=== PATIENT | male | born 1970 | race African-American/Black ===

== ENCOUNTER → 2022-09-05 | Outpatient (CLI) | payer BC | LOC: CPPFTMAIN 09:53 | PROVIDERS: ATTEND Thoracic Surgery (Cardiothoracic Vascular Surgery) | DX: I34.0 Nonrheumatic mitral (valve) insufficiency (principal) | CPT/HCPCS: 94150 ==

== ENCOUNTER → 2022-10-03 | Outpatient (CLI) | payer BC ==
--- NOTE | 2022-10-03 09:10 | XR ---
EXAMINATION TYPE: XR chest 2V DATE OF EXAM: 10/03/2022 COMPARISON: NONE HISTORY: Shortness of breath TECHNIQUE: Frontal and lateral views of the chest are obtained. FINDINGS: Scattered senescent parenchymal changes noted. No evidence for infiltrate. No evidence for atelectasis. Heart size is stable. Mediastinal structures are stable and grossly unremarkable. No evidence for hilar prominence. Degenerative changes dorsal spine. IMPRESSION: 1. No evidence for acute pulmonary disease.
[2022-10-03 11:06] LABS: INR 1.1 (<1.2); Partial Thromboplastin Time 24.6 sec (22.0-30.0); Prothrombin Time 11.5 sec (9.0-12.0)
--- NOTE | 2022-10-03 14:45 | P.PN ---
Progress Note - Text Progress Note Date: 10/03/22 A 5 m walk test was completed with the patient , time 1: 1.82 seconds, time 2: 2.05 seconds, time 3: 2.13 seconds.
[2022-10-03 15:21] LABS: ALT 39 U/L (10-49); AST 45 U/L (14-35); African American GFR (CKD) 66.3 (60.0-200.0); Albumin 4.2 g/dL (3.8-4.9); Alkaline Phosphatase 105 U/L (41-126); BUN/Creat Ratio 13.66 Ratio (12.00-20.00); Blood Urea Nitrogen 19.4 mg/dL (9.0-27.0); Calcium 9.6 mg/dL (8.7-10.3); Carbon Dioxide 26.5 mmol/L (20.0-27.5); Chloride 101 mmol/L (96-109); Chol/HDL Ratio 2.77 Ratio; Globulin 3.2 g/dL (1.6-3.3); Glucose 79 mg/dL (70-110); LDL Cholesterol,Calculated 82.3 mg/dL (0.0-131.0); Magnesium 2.2 mg/dL (1.5-2.4); Non-African American GFR(CKD) 57.2 (60.0-200.0); Potassium 4.4 mmol/L (3.5-5.5); Sodium 136 mmol/L (135-145); Total Protein 7.4 g/dL (6.2-8.2)
[2022-10-03 15:28] LABS: Hepatitis A Antibody IgM Nonreactive (Nonreactive); Hepatitis B Core IgM Nonreactive (Nonreactive); Hepatitis B Surface Antigen Nonreactive (Nonreactive); Hepatitis C IgG Antibody Nonreactive (Nonreactive)
[2022-10-03 16:32] LABS: Appearance,Urine Clear (Clear); Bilirubin,Urine Negative (Negative); Blood,Urine Negative (Negative); Color,Urine Yellow (Yellow); Ketones,Urine Negative (Negative); Nitrite,Urine Negative (Negative); Specific Gravity,Urine 1.025 (1.001-1.030)
[2022-10-03 16:43] LABS: Bacteria,Urine None Seen /HPF (None Seen)
[2022-10-03 17:09] LABS: HCT 53.4 % (39.6-50.0); HGB 17.3 g/dL (13.0-17.0); MCH 30.1 pg (27.0-32.0); MCHC 32.4 g/dL (32.0-37.0); Mean Platelet Volume 10.8 fL (9.5-12.2); NRBC Per 100 WBC 0 /100 WBCS (0.0-0.0); Platelet Count 255 X 10*3/uL (140-440); RBC 5.74 X 10*6/uL (4.40-5.60); RDW 14.2 % (11.5-14.5); WBC 5.09 X 10*3/uL (4.50-10.00)
--- NOTE | 2022-10-04 09:14 | US ---
EXAMINATION TYPE: US vein mapping BIL DATE OF EXAM: 10/03/2022 11:39 AM COMPARISON: NONE CLINICAL HISTORY: OPEN HEART. SIDE PERFORMED: Bilateral TECHNIQUE: Lower extremity saphenous vein is examined and measured utilizing real time linear array sonography. Patient History: Smoker: No Heart Disease: Yes Previous DVT: No Vascular Surgery: No Discoloration: No Hypertension: Yes Diabetes: Yes Paralysis: No Varicosities: No Edema: No DUPLEX FINDINGS: Greater Saphenous: Color flow seen Measurements in mm: Right Greater Saphenous: AP X WIDTH Groin: 3.7 X 4.8 mm High Thigh: 2.6 X 2.6 mm Mid Thigh: 3.2 X 3.4 mm Above Knee: 2.5 X 3.6 mm Knee: 2.6 X 3.6 mm Below Knee: 2.3 X 2.7 mm Mid Calf: 2.5 X 3.7 mm At Ankle: 2.3 X 2.7 mm Left Greater Saphenous: Groin: 7.4 X 7.3 mm High Thigh: 2.6 X 3.1 mm Mid Thigh: 3.1 X 2.8 mm Above Knee: 2.7 X 3.2 mm Knee: 2.5 X 3.1 mm Below Knee: 2.6 X 2.8 mm Mid Calf: 2.3 X 3.0 mm At Ankle: 2.1 X 2.8 mm IMPRESSION: 1. Bilateral GSV measurements listed above. 2. Performing surgeon to determine viability as conduit.
== END | disposition home or self-care (01) ==
LOC: LABWHC1 08:42
PROVIDERS: ATTEND Thoracic Surgery (Cardiothoracic Vascular Surgery)
DX: Z20.822 Contact with and (suspected) exposure to COVID-19 (principal); I35.1 Nonrheumatic aortic (valve) insufficiency
CPT/HCPCS: 80061; 80053; 80074; 84443; 83735; 85027; 85610; 85730; 81001; 87070; 87086; 83036; 71046; 93970; 93005; 36415; U0003

== ENCOUNTER 2022-10-07 08:00 | Inpatient (IN) | payer BC ==
[2022-10-08] MEDS ORDERED: HEPARIN SODIUM,PORCINE 5,000 UNIT in SODIUM CHLORIDE 0.9% 500 ML 500 ML IV ONE (06:00)
[2022-10-08] MEDS ORDERED: propofoL 1,000 MG/100 ML VIAL IV ONE (06:00)
[2022-10-08] MEDS ORDERED: CALCIUM CHLORIDE 100 MG/ML 10 ML SYRINGE IV ONE (06:00)
[2022-10-08] MEDS ORDERED: METOPROLOL TARTRATE 12.5 MG TAB PO ONE (06:00)
[2022-10-08] MEDS ORDERED: PAPAVERINE 360 MG in SODIUM CHLORIDE 0.9% 90 ML IV ONE (06:00)
[2022-10-08] MEDS ORDERED: INSULIN REGULAR 100 UNIT in SODIUM CHLORIDE 0.9% 100 ML IV ONE (06:00)
[2022-10-08] MEDS ORDERED: NITROGLYCERIN SL TABS 0.4 MG TAB SUBLINGUAL ONE (06:00)
[2022-10-08] MEDS ORDERED: MUPIROCIN 2% OINT 22 GM TUBE NASAL ONE (06:00)
[2022-10-08] MEDS ORDERED: PHENYLEPHRINE 40 MG in SODIUM CHLORIDE 0.9% 250 ML IV ONE (06:00)
[2022-10-08] MEDS ORDERED: NITROGLYCERIN-D5W PMX 25 MG/250 ML BTL IV ONE (06:00)
[2022-10-08] MEDS ORDERED: SODIUM CHLORIDE 0.9% 1,000 ML IV ONE (06:00)
[2022-10-08] MEDS ORDERED: SODIUM BICARB 8.4% 50 ML SYR (1 MEQ/ML) IV ONE (06:00)
[2022-10-08] MEDS ORDERED: ALBUMIN HUMAN 25% 50 ML IV ONE (06:00)
[2022-10-08] MEDS ORDERED: HEPARIN SODIUM 1,000 UN/ML (10ML VL) IV ONE (06:00)
[2022-10-08] MEDS ORDERED: ATORVASTATIN 10 MG TAB PO ONE (06:00)
[2022-10-08] MEDS ORDERED: NOREPINEPHRINE 4 MG in SODIUM CHLORIDE 0.9% 250 ML IV ONE (06:00)
[2022-10-08] MEDS ORDERED: CHLORHEXIDINE GLUCONATE 15 ML CUP MUCOUS MEM ONE (06:00)
[2022-10-08] MEDS ORDERED: PROTAMINE SULFATE 250 MG in EMPTY BAG 1 BAG IV ONE (06:00)
[2022-10-08] MEDS ORDERED: ELECTROLYTE-A SOLUTION 1,000 ML with POTASSIUM CHLORIDE 100 MEQ, MAGNESIUM SULFATE 16 M... IV ONE ×5 (06:00)
[2022-10-08] MEDS ORDERED: ELECTROLYTE-A SOLUTION 1,000 ML with POTASSIUM CHLORIDE 40 MEQ, MAGNESIUM SULFATE 16 ME... IV ONE ×5 (06:00)
[2022-10-08] MEDS ORDERED: MAGNESIUM SULFATE 16.24 MEQ in EMPTY SYRINGE 1 SYR IV ONE (06:00)
[2022-10-08] MEDS ORDERED: MANNITOL 25% 12.5 GM/50 ML VIAL IV ONE (06:00)
[2022-10-08] MEDS ORDERED: NITROGLYCERIN-D5W PMX 50 MG in DEXTROSE/WATER 1 250ML.BAG IV ONE (06:00)
[2022-10-08] MEDS ORDERED: PROTAMINE SULFATE 10 MG/ML 25 ML VIAL IV ONE (06:00)
[2022-10-08] MEDS ORDERED: ceFAZolin 1,000 MG in SODIUM CHLORIDE 0.9% IRRIGATIO 1,000 ML IRRIGATION ONE (06:00)
[2022-10-08] MEDS ORDERED: PHENYLEPHRINE 10 MG/ML VIAL IV ONE (06:00)
[2022-10-08] MEDS ORDERED: TRANEXAMIC ACID 2,000 MG in SODIUM CHLORIDE 0.9% 80 ML IV ONE ×4 (06:00)
[2022-10-08] MEDS ORDERED: CLEVIDIPINE BUTYRATE 25 MG in EMPTY BAG 1 BAG IV ONE (06:00)
[2022-10-08] MEDS ORDERED: ASPIRIN 325 MG TAB PO ONE (06:00)
[2022-10-08] MEDS ORDERED: LACTATED RINGERS 1,000 ML IV ONE (06:00)
[2022-10-08 06:50] LABS: Glucose,Whole Blood 89 mg/dL (70-110)
[2022-10-08 08:52] LABS: ABG Base Excess 0.5 mmol/L; ABG Glucose Whole Blood 82 mg/dL (75-99); ABG HCO3 27 mmol/L (21-25); ABG Hematocrit 48 % (34.0-46.0); ABG Ionized Calcium 4.9 mg/dL (4.5-5.3); ABG Lactic Acid Whole Blood 1.1 mmol/L (0.5-1.6); ABG Oxygen Saturation 99.8 % (94-97); ABG PCO2 47 mmHg (35-45); ABG PH 7.36 (7.35-7.45); ABG PO2 397 mmHg (83-108); ABG Potassium Whole Blood 4.3 mmol/L (3.4-4.5); ABG Sodium Whole Blood 140 mmol/L (135-146); ABG TCO2 28 mmol/L (19-24)
[2022-10-08 09:52] LABS: ABG Base Excess 0.6 mmol/L; ABG Glucose Whole Blood 90 mg/dL (75-99); ABG HCO3 26 mmol/L (21-25); ABG Hematocrit 47 % (34.0-46.0); ABG Ionized Calcium 4.8 mg/dL (4.5-5.3); ABG Oxygen Saturation 99.8 % (94-97); ABG PCO2 43 mmHg (35-45); ABG PH 7.39 (7.35-7.45); ABG Potassium Whole Blood 4.1 mmol/L (3.4-4.5); ABG Sodium Whole Blood 140 mmol/L (135-146); ABG TCO2 27 mmol/L (19-24)
[2022-10-08 10:22] LABS: ABG Base Excess 0.2 mmol/L; ABG Glucose Whole Blood 89 mg/dL (75-99); ABG HCO3 26 mmol/L (21-25); ABG Hematocrit 38 % (34.0-46.0); ABG Ionized Calcium 4.4 mg/dL (4.5-5.3); ABG Oxygen Saturation 99.7 % (94-97); ABG PCO2 44 mmHg (35-45); ABG PH 7.38 (7.35-7.45); ABG PO2 366 mmHg (83-108); ABG Sodium Whole Blood 136 mmol/L (135-146); ABG TCO2 27 mmol/L (19-24)
--- NOTE | 2022-10-08 10:54 | P.ANPRN ---
Procedure Note - Anesthesia - Invasive Line Right Central Line Time Out Performed: Yes ([id number]) Date of Procedure: 10/08/22 Time of Procedure: 07:28 Location of Patient: Phase I Preparation: Sterile Prep, Sterile Dressing Arterial Line Location: Radial Central Line Location: Internal Jugular Ultrasound Used: Yes Purpose - Visualization and Identification of Vasculature: Yes Needle Guage: 18g angio Image Stored and Saved: Yes Narrative: Central line placement per sterile protocol utilized. +local +angio +jwire +uneventful introduction and dilation right IJ cordis. Lumen bled. Non-pulsitile. Flushed.
--- NOTE | 2022-10-08 10:56 | P.ANPRN ---
Procedure Note - Anesthesia - Invasive Line Right [place] Time Out Performed: Yes ([id number]) Date of Procedure: 10/08/22 Time of Procedure: 07:37 Location of Patient: Phase I Preparation: Sterile Prep, Sterile Dressing Arterial Line Location: Radial [place] Line Location: Internal Jugular Ultrasound Used: No Purpose - Visualization and Identification of Vasculature: No Image Stored and Saved: No Narrative: Central line placement per sterile protocol utilized. swan floated in sheath in 2 attempts. All lumens flushed prior to introduction. Wedge at 59cm. B/d. W/d 5cm and secured at 54cm.
[2022-10-08 11:07] LABS: ABG Base Excess 0.4 mmol/L; ABG Glucose Whole Blood 98 mg/dL (75-99); ABG HCO3 26 mmol/L (21-25); ABG Hematocrit 39 % (34.0-46.0); ABG Ionized Calcium 4.5 mg/dL (4.5-5.3); ABG Lactic Acid Whole Blood 1.2 mmol/L (0.5-1.6); ABG Oxygen Saturation 99.7 % (94-97); ABG PCO2 44 mmHg (35-45); ABG PH 7.38 (7.35-7.45); ABG PO2 346 mmHg (83-108); ABG Potassium Whole Blood 5.1 mmol/L (3.4-4.5); ABG Sodium Whole Blood 137 mmol/L (135-146); ABG TCO2 27 mmol/L (19-24)
[2022-10-08] MEDS ORDERED: AMIODARONE 360 MG in DEXTROSE 5% IN WATER 200 ML IV PRN ×2 (12:35)
[2022-10-08] MEDS ORDERED: METOCLOPRAMIDE 5 MG/ML 2 ML VIAL IVP PRN (12:35)
[2022-10-08] MEDS ORDERED: Potassium Replacement Protocol 1 EACH MISC MISCELLANE PRN (12:35)
[2022-10-08] MEDS ORDERED: ALBUMIN HUMAN 5% 250 ML in EMPTY BAG 1 BAG IVPB PRN (12:35)
[2022-10-08] MEDS ORDERED: BENZOCAINE/MENTHOL LOZENG 1 EACH LOZENGE MUCOUS MEM PRN (12:35)
[2022-10-08] MEDS ORDERED: Magnesium Replacement Protocol 1 EACH MISC MISCELLANE PRN (12:35)
[2022-10-08] MEDS ORDERED: DEXTROSE 50% SYRINGE 50 ML IVP PRN ×2 (12:35)
[2022-10-08] MEDS ORDERED: AMIODARONE 450 MG in DEXTROSE 5% IN WATER 250 ML IV PRN ×2 (12:35)
[2022-10-08] MEDS ORDERED: IPRATROPIUM-ALBUTEROL 3 ML NEB INHALATION PRN (12:35)
[2022-10-08] MEDS ORDERED: DEXTROSE 5% IN WATER 100 ML with AMIODARONE 150 MG IV PRN (12:35)
[2022-10-08] MEDS ORDERED: CALCIUM GLUCONATE IN NACL 2 GM in SALINE 1 100ML.BAG IVPB PRN (12:35)
[2022-10-08] MEDS ORDERED: hydrALAZINE HCL 20 MG/ML 1 ML VIAL IVP PRN (12:35)
[2022-10-08 12:48] LABS: ABG PO2 >420 mmHg (83-108)
[2022-10-08] MEDS: LACTATED RINGERS 1,000 ML IV SCH (13:02)
[2022-10-08 13:31] LABS: Glucose,Whole Blood 94 mg/dL (70-110)
[2022-10-08 13:44] LABS: Basophils % (A) 0 %; Eosinophils # (A) 0.2 k/uL (0-0.7); Eosinophils % (A) 1 %; HCT 45.3 % (39.0-53.0); HGB 15.2 gm/dL (13.0-17.5); Lymphocytes # (A) 1.5 k/uL (1.0-4.8); Lymphocytes % (A) 11 %; MCH 30.7 pg (25.0-35.0); MCHC 33.6 g/dL (31.0-37.0); MCV 91.5 fL (80.0-100.0); Mean Platelet Volume 8.5; Monocytes # (A) 0.5 k/uL (0-1.0); Monocytes % (A) 3 %; Neutrophils # (A) 11.8 k/uL (1.3-7.7); Neutrophils % (A) 84 %; Platelet Count 156 k/uL (150-450); RBC 4.95 m/uL (4.30-5.90); RDW 14.2 % (11.5-15.5); WBC 14.1 k/uL (3.8-10.6)
[2022-10-08] MEDS ORDERED: CLEVIDIPINE BUTYRATE 25 MG in EMPTY BAG 1 BAG IV SCH (13:45)
[2022-10-08] MEDS ORDERED: DEXMEDETOMIDINE/0.9% NACL(PMX) 400 MCG in EMPTY BAG 1 BAG IV SCH (13:45)
[2022-10-08 13:48] LABS: Ionized Calcium 5.3 mg/dL (4.5-5.3)
--- NOTE | 2022-10-08 13:55 | XR ---
EXAMINATION TYPE: XR chest 1V portable DATE OF EXAM: 10/08/2022 1:46 PM COMPARISON: Chest radiographs from 10/03/2022 TECHNIQUE: XR chest 1V portable Portable AP radiograph of the chest. CLINICAL INDICATION:Male, 52 years old with history of Post Operative Cardiac Surgery; FINDINGS: Lungs/Pleura: There is no evidence of pleural effusion, focal consolidation, or pneumothorax. Pulmonary vascularity: Unremarkable. Heart/mediastinum: Cardiomediastinal silhouette is prominent in size. Post valve repair changes. Lef t atrial appendage occlusion device is present. Musculoskeletal: No acute osseous pathology. Midline sternotomy wires are noted. Other findings: None Lines/Tubes: Endotracheal tube with distal tip 1.5 cm above the charla Nasogastric tube with its distal tip and side-port projecting under the diaphragm. There is a [place]-Juan catheter with tip projecting over the spine. Drainage tubes with tips projecting over the mediastinum. IMPRESSION: 1. Endotracheal tube in low position. Consider retraction of 2-3 cm for optimal placement. 2. Remainder of lines and tubes appear in appropriate position.
[2022-10-08 13:59] LABS: INR 1.2 (<1.2); Partial Thromboplastin Time 39.8 sec (22.0-30.0); Prothrombin Time 12.5 sec (9.0-12.0)
[2022-10-08] MEDS ORDERED: INSULIN REGULAR 100 UNIT in SODIUM CHLORIDE 0.9% 100 ML IV SCH (14:00)
[2022-10-08 14:01] LABS: Albumin 3.2 g/dL (3.5-5.0); Calcium 8.3 mg/dL (8.4-10.2); Magnesium 2.6 mg/dL (1.6-2.3); Potassium 4.4 mmol/L (3.5-5.1); Total Bilirubin 1.2 mg/dL (0.2-1.3); Total Protein 5.6 g/dL (6.3-8.2)
[2022-10-08] MEDS: MILRINONE-D5W PMX 20 MG in DEXTROSE/WATER 1 100ML.BAG IV SCH ×2 (14:07→20:04)
[2022-10-08] MEDS: NOREPINEPHRINE 4 MG in SODIUM CHLORIDE 0.9% 250 ML IV SCH (14:09)
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
[2022-10-08 14:32] LABS: Glucose,Whole Blood 85 mg/dL (70-110)
[2022-10-08] MEDS ORDERED: IPRATROPIUM-ALBUTEROL 3 ML NEB INHALATION SCH (16:00)
[2022-10-08 16:09] LABS: Glucose,Whole Blood 96 mg/dL (70-110)
[2022-10-08 16:29] LABS: Basophils % (A) 0 %; Eosinophils # (A) 0.1 k/uL (0-0.7); Eosinophils % (A) 1 %; HCT 47.8 % (39.0-53.0); HGB 16.2 gm/dL (13.0-17.5); Lymphocytes # (A) 1.2 k/uL (1.0-4.8); Lymphocytes % (A) 8 %; MCH 31.3 pg (25.0-35.0); MCHC 33.8 g/dL (31.0-37.0); MCV 92.7 fL (80.0-100.0); Mean Platelet Volume 8.3; Monocytes # (A) 0.6 k/uL (0-1.0); Monocytes % (A) 4 %; Neutrophils # (A) 13.1 k/uL (1.3-7.7); Neutrophils % (A) 86 %; Platelet Count 170 k/uL (150-450); RBC 5.16 m/uL (4.30-5.90); RDW 14.2 % (11.5-15.5); WBC 15.3 k/uL (3.8-10.6)
[2022-10-08] MEDS: HEPARIN SODIUM,PORCINE/PF 5,000 UNIT/0.5 ML SYRINGE SQ SCH ×2 (16:29→23:13)
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
[2022-10-08] MEDS: ACETAMINOPHEN IV (For NPO) 1,000 MG in EMPTY BAG 1 BAG IVPB SCH ×2 (16:55→23:09)
[2022-10-08 17:04] LABS: Glucose,Whole Blood 95 mg/dL (70-110)
[2022-10-08] MEDS ORDERED: KETOROLAC 15 MG/ML 1 ML VIAL IVP STA (17:35)
[2022-10-08] MEDS: HYDROmorphone 1 MG/ML 1 ML SYRINGE IVP PRN ×2 (17:54→23:07)
[2022-10-08 18:42] LABS: Glucose,Whole Blood 97 mg/dL (70-110)
[2022-10-08] MEDS: ONDANSETRON 4 MG/2 ML VIAL IVP PRN (19:06)
[2022-10-08] MEDS: IPRATROPIUM-ALBUTEROL 3 ML NEB INHALATION SCH (19:45)
[2022-10-08 19:49] LABS: Glucose,Whole Blood 107 mg/dL (70-110)
[2022-10-08 19:55] LABS: Basophils % (A) 0 %; Eosinophils % (A) 0 %; HCT 45.9 % (39.0-53.0); HGB 15.3 gm/dL (13.0-17.5); Lymphocytes # (A) 0.7 k/uL (1.0-4.8); Lymphocytes % (A) 5 %; MCH 30.9 pg (25.0-35.0); MCHC 33.4 g/dL (31.0-37.0); MCV 92.7 fL (80.0-100.0); Mean Platelet Volume 8.2; Monocytes # (A) 0.5 k/uL (0-1.0); Monocytes % (A) 4 %; Neutrophils # (A) 12.9 k/uL (1.3-7.7); Neutrophils % (A) 89 %; Platelet Count 155 k/uL (150-450); RBC 4.95 m/uL (4.30-5.90); RDW 14.4 % (11.5-15.5); WBC 14.4 k/uL (3.8-10.6)
[2022-10-08] MEDS: AMIODARONE 200 MG TAB PO SCH (20:08)
--- NOTE | 2022-10-08 20:57 | OP ---
OPERATIVE REPORT ASSISTANTS: 1. Taco Montano NP. 2. HUNTER Tidwell. PREOPERATIVE DIAGNOSES: 1. Severe aortic insufficiency. 2. [id number] mitral regurgitation. POSTOPERATIVE DIAGNOSES: 1. Severe aortic insufficiency. 2. [id number] mitral regurgitation. PROCEDURES: Aortic valve replacement with a #25 mm Abreu Inspiris bioprosthetic aortic valve, mitral valve repair with a #30 mm CarboMedics AnnuloFlex band, clip ligation of the left atrial appendage with a 35 mm AtriClip, and intraoperative DAQUAN. ANESTHESIA: General. BLOOD LOSS: 500 mL. SUMMARY: The patient was brought to the operating room and placed in supine position. Upon administration of general endotracheal anesthetic, placement of a [place]-Juan catheter, arterial line, adequate IV access Hyde catheter, the patient was carefully prepped and draped in normal sterile fashion using chlorhexidine paint and sterile towels. A midline incision in the chest was made, sternum divided, pericardium was opened, heart size was enlarged. The aorta was soft. The patient was heparinized to an ACT of greater than 480. The aorta and 2 single-stage venous cannulas were placed. Antegrade and retrograde cardioplegic catheters were positioned in the ascending aorta and the coronary sinus. The patient was placed on bypass, cross-clamp placed, heart arrested with 1 L of antegrade followed by 500 mL retrograde cardioplegia. Retrograde cardioplegia was delivered, 300 to 500 mL at the end of each 20-minute interval. First, the base of the left atrial appendage was measured at 35 mm AtriClip, secured at the base sufficiently obliterating the left atrial appendage. The left atrium was entered at the junction of the right superior pulmonary vein. A handheld retractor was placed. The subvalvular apparatus was within normal limits. There was definitely a dilated annulus and mild coaptation. 2-0 Ti-Cron non-pledgeted sutures were placed from trigone to trigone along the posterior annulus and it sized to a 30 mm CarboMedics AnnuloFlex band. At this point, the band was brought into the field. 2-0 Ti-Cron non- pledgeted sutures were placed from trigone to trigone and then placed to the band. The band was seated well. All sutures were secured, tied, and cut using the Cor-Knot ligature system device. At this point, the atrium was closed in a double layered pledgeted 4-0 Prolene vertical mattress followed by an [id number] stitch on both sides. Next, a transverse aortotomy incision was made 2 cm distal to the takeoff of the right coronary artery. The aortic valve was identified, and it was a trileaflet valve. There was a hole in the right coronary cusp leaflet. The 3 leaflets were excised. The annulus was debrided and irrigated out. It sized to a 25 mm Abreu Inspiris bioprosthetic aortic valve. 2-0 Ti-Cron pledgetted sutures were placed ventricularly based circumferentially. These were then passed through the sewing cuff of the valve, which seated and seated well. All sutures were then secured, tied, and cut using the Cor-Knot ligature system device. It was irrigated out again, and the aortotomy incision was closed in a double layered pledgeted 4-0 Prolene vertical mattress followed by an [id number]-waxg stitch from both sides. The patient was placed head down. Complete de-airing maneuvers performed 3 times. 1 L of warm blood retrograde cardioplegia was run. Cross-clamp was then removed. The patient was reperfused, and once beating in normal sinus rhythm, the patient was ventilated and brought off bypass. He came off bypass uneventfully with good hemodynamics with a little bit of Primacor and Levophed, protamine delivered, the patient decannulated. Atrioventricular pacing wires were placed. Mediastinal chest tubes x2 were placed. At this point, the sternum was closed with four #6 sternal wires and two [id number] [place] sternal cable closure devices. Skin, subcutaneous tissue, fascia closed in 3 layers. No complications. The patient tolerated the procedure well. Postoperative DAQUAN showed excellent aortic valve function. No paravalvular leak. The mitral valve had good coaptation with no residual MR, and the patient was then transported to the cardiovascular intensive care unit in critical, but stable condition. MMODL / IJN: [id number] /
[2022-10-08 21:01] LABS: Glucose,Whole Blood 104 mg/dL (70-110)
[2022-10-08 22:10] LABS: Glucose,Whole Blood 107 mg/dL (70-110)
[2022-10-09] MEDS ORDERED: KETOROLAC 15 MG/ML 1 ML VIAL IVP SCH
[2022-10-09 00:08] LABS: Glucose,Whole Blood 111 mg/dL (70-110)
[2022-10-09] MEDS ORDERED: HYDROcodone/APAP 5-325MG 1 EACH TAB PO PRN (00:13)
[2022-10-09 02:01] LABS: Glucose,Whole Blood 110 mg/dL (70-110)
[2022-10-09] MEDS: HYDROmorphone 1 MG/ML 1 ML SYRINGE IVP PRN (02:55)
[2022-10-09] MEDS: ONDANSETRON 4 MG/2 ML VIAL IVP PRN (03:53)
[2022-10-09 04:08] LABS: Glucose,Whole Blood 110 mg/dL (70-110)
[2022-10-09] MEDS: HYDROcodone/APAP 5-325MG 1 EACH TAB PO PRN ×5 (04:58→22:43)
[2022-10-09 05:04] LABS: Glucose,Whole Blood 114 mg/dL (70-110)
[2022-10-09 05:13] LABS: Basophils # (A) 0.1 k/uL (0-0.2); Basophils % (A) 1 %; Eosinophils # (A) 0.2 k/uL (0-0.7); Eosinophils % (A) 1 %; HCT 47.3 % (39.0-53.0); HGB 15.7 gm/dL (13.0-17.5); Lymphocytes # (A) 1.1 k/uL (1.0-4.8); Lymphocytes % (A) 7 %; MCH 30.8 pg (25.0-35.0); MCHC 33.3 g/dL (31.0-37.0); MCV 92.6 fL (80.0-100.0); Monocytes # (A) 0.6 k/uL (0-1.0); Monocytes % (A) 4 %; Neutrophils # (A) 12.3 k/uL (1.3-7.7); Neutrophils % (A) 86 %; Platelet Count 157 k/uL (150-450); RBC 5.11 m/uL (4.30-5.90); RDW 13.9 % (11.5-15.5); WBC 14.3 k/uL (3.8-10.6)
[2022-10-09 05:19] LABS: Ionized Calcium 5.1 mg/dL (4.5-5.3)
[2022-10-09 05:33] LABS: Albumin 3.6 g/dL (3.5-5.0); Calcium 8.5 mg/dL (8.4-10.2); Magnesium 2.1 mg/dL (1.6-2.3); Potassium 5.1 mmol/L (3.5-5.1); Total Protein 6.3 g/dL (6.3-8.2)
[2022-10-09] MEDS: LACTATED RINGERS 1,000 ML IV SCH (06:15)
--- NOTE | 2022-10-09 06:22 | XR ---
EXAMINATION TYPE: XR chest 1V portable DATE OF EXAM: 10/09/2022 CLINICAL HISTORY: Difficulty breathing progress study. Postoperative cardiac surgery. TECHNIQUE: Single AP portable upright view of the chest is obtained. COMPARISON: Chest x-ray from one day earlier and older studies. FINDINGS: Interval extubation with removal of endotracheal and orogastric tubes. Stable right equine internship al jugular [place]-Juan catheter. Stable 2 mediastinal drainage catheters. Overlying sternal wires along with left atrial appendage clip are redemonstrated. Persistent low lung volumes. Persistent cardiomegaly. [place] left basilar opacity. Right lung rem ains clear. Osseous structures are intact. IMPRESSION: Interval extubation. Persistent low lung volumes and cardiomegaly with developing left ba silar acute infiltrate and/or atelectasis noted.
[2022-10-09 06:57] LABS: Glucose,Whole Blood 118 mg/dL (70-110)
[2022-10-09] MEDS: carvediloL 3.125 MG TAB PO SCH ×2 (07:05→16:51)
[2022-10-09 08:12] LABS: Glucose,Whole Blood 119 mg/dL (70-110)
[2022-10-09] MEDS: IPRATROPIUM-ALBUTEROL 3 ML NEB INHALATION SCH ×4 (08:47→19:58)
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
[2022-10-09] MEDS ORDERED: PANTOPRAZOLE 40 MG/10 ML VIAL IVP SCH (09:00)
[2022-10-09] MEDS ORDERED: METOPROLOL TARTRATE 12.5 MG TAB PO SCH (09:00)
[2022-10-09] MEDS: ATORVASTATIN 20 MG TAB PO SCH (09:00)
[2022-10-09] MEDS: AMIODARONE 200 MG TAB PO SCH ×2 (09:00→19:59)
[2022-10-09] MEDS: MULTIVITAMINS, THERA 1 EACH TAB PO SCH (09:00)
[2022-10-09] MEDS ORDERED: MAGNESIUM HYDROXIDE 2,400 MG/10 ML CUP PO PRN (09:00)
[2022-10-09] MEDS ORDERED: bisacodyL 10 MG SUPP RECTAL PRN (09:00)
[2022-10-09] MEDS: HEPARIN SODIUM,PORCINE/PF 5,000 UNIT/0.5 ML SYRINGE SQ SCH ×2 (09:01→16:51)
[2022-10-09] MEDS: CLOPIDOGREL 75 MG TAB PO SCH (09:01)
[2022-10-09] MEDS: ASPIRIN 325 MG TAB PO SCH (09:01)
--- NOTE | 2022-10-09 09:08 | P.PN ---
Subjective Progress Note Date: 10/09/22 PROGRESS NOTE The patient is a 52-year-old male, followed by Dr. Johnson underwent aortic valve replacement and mitral valve repair was closure of the left atrial appendage. He has been having progressive aortic regurgitation with evidence of cardiomyopathy. He underwent cardiac catheterization in July and showed normal coronary arteries, his DAQUAN showed an ejection fraction of 35-40% with global hypokinesis severe aortic was moderate mitral regurgitation and mild tricuspid regurgitation. The patient is intubated and sedated. He is in sinus mechanism but apparently had arrhythmia in the operating room. He has been complaining according to the records of progressive dyspnea and fatigue. He has a prior history of sustained on a more frequent ventricle tachycardia. He has a history of diabetes, hypertension and hyperlipidemia. October 09: The patient is extubated, sitting up in the chair. He he has incisional chest pain. His presenting stable. He continues to be in sinus mechanism. His urinary output is good. He has no ventricular ectopic activity. He is using incentive spirometry Medications: Amiodarone 400 mg twice a day, Coreg 3.125 mg twice a day, aspirin once a day, Lipitor 20 mg daily, Plavix 75 mg daily PHYSICAL EXAMINATION: Blood pressure 131/90 heart rate 70 LUNGS: Mild decrease in the breath sounds at the bases HEART: Regular rate and rhythm, S1, S2. No S3. systolic ejection murmur ABDOMEN: Soft, nontender, no organomegaly EXTREMETIES: No edema LAB: Hemoglobin 15.7, BUN 20, creatinine 1.12, potassium 5.1 IMPRESSION: 1. Status post aortic valve replacement and mitral valve repair 2. History of nonischemic cardiomyopathy 3. Prior history of nonsustained VT 4. Hyperlipidemia PLAN: 1. Continue present therapy 2. Follow blood pressure and if stable reinitiate Entresto and adjust the dose of his beta olga. 3. Follow renal functions 4. Increase physical activity Objective - Vital Signs Vital signs: Vital Signs Temp 99.5 F 10/09/22 08:00 Pulse 85 10/09/22 08:51 Resp 25 H 10/09/22 08:00 BP 125/105 10/09/22 07:30 Pulse Ox 96 10/09/22 08:00 FiO2 50 10/08/22 15:20 Intake & Output 10/08/22 10/09/22 10/09/22 18:59 06:59 18:59 Intake Total 472.430 933.546 118 Output Total 3275 1520 130 Balance -2802.570 -586.454 -12 Weight 102.5 kg Intake: IV 446 828 118 .9NS Cardiac Output 100 120 .9NS Pressure Bags 45 108 18 Lactated Ringers 1,000 ml 250 600 100 @ 50 mls/hr IV .Q20H [facility] Rx#:[id number] Intake, IV Titration 26.430 105.546 Amount Clevidipine Butyrate 25 16.533 mg In Empty Bag 1 bag @ 1 MG/HR 2 mls/hr IV .Q24H [facility] Rx#:[id number] Milrinone-D5w Pmx 20 mg 105.546 In Dextrose/Water 1 100ml .bag @ 0.3 MCG/KG/MIN 9. 09 mls/hr IV .Q11H1M [facility] Rx#:[id number] propofoL 1,000 mg In 9.897 Empty Bag 1 bag @ Titrate IV .Q0M [facility] Rx#: [id number] Output: Chest Tube Drainage 300 440 30 Mediastinal X @ 300 440 30 Urine 1475 1080 100 Estimated Blood Loss 1500 Other: Voiding Method Indwelling Catheter Indwelling Catheter ABP, PAP, CO, CI - Last Documented Arterial Blood Pressure 131/92 Pulmonary Artery Pressure 44/20 Cardiac Output 4.9 Cardiac Index 2.2 - Labs CBC & Chem 7: 10/09/22 05:04 10/09/22 05:04 Labs: Abnormal Lab Results - Last 24 Hours (Table) 10/03/22 10/08/22 10/08/22 Range/Units 09:06 08:52 09:52 WBC (3.8-10.6) k/uL Neutrophils # (1.3-7.7) k/uL Lymphocytes # (1.0-4.8) k/uL PT (9.0-12.0) sec INR (<1.2) APTT (22.0-30.0) sec ABG pCO2 47 H (35-45) mmHg ABG pO2 397 H >420 H (83-108) mmHg ABG HCO3 27 H 26 H (21-25) mmol/L ABG Total CO2 28 H 27 H (19-24) mmol/L ABG O2 Saturation 99.8 H 99.8 H (94-97) % ABG Hematocrit 48 H 47 H (34.0-46.0) % ABG Potassium (3.4-4.5) mmol/L ABG Ionized Calcium (4.5-5.3) mg/dL Hemoglobin (13.0-17.5) gm/dL Sodium (137-145) mmol/L Chloride (98-107) mmol/L BUN (9-20) mg/dL Glucose (74-99) mg/dL POC Glucose (mg/dL) (70-110) mg/dL Calcium (8.4-10.2) mg/dL Magnesium (1.6-2.3) mg/dL Total Bilirubin (0.2-1.3) mg/dL AST (17-59) U/L Total Protein (6.3-8.2) g/dL Albumin (3.5-5.0) g/dL Arterial Blood Potassium (3.4-4.5) mmol/L Crossmatch See Detail 10/08/22 10/08/22 10/08/22 Range/Units 10:22 11:07 13:30 WBC (3.8-10.6) k/uL Neutrophils # (1.3-7.7) k/uL Lymphocytes # (1.0-4.8) k/uL PT 12.5 H (9.0-12.0) sec INR 1.2 H (<1.2) APTT 39.8 H (22.0-30.0) sec ABG pCO2 (35-45) mmHg ABG pO2 366 H 346 H (83-108) mmHg ABG HCO3 26 H 26 H (21-25) mmol/L ABG Total CO2 27 H 27 H (19-24) mmol/L ABG O2 Saturation 99.7 H 99.7 H (94-97) % ABG Hematocrit (34.0-46.0) % ABG Potassium 5.0 H 5.1 H (3.4-4.5) mmol/L ABG Ionized Calcium 4.4 L (4.5-5.3) mg/dL Hemoglobin 12.4 L 12.6 L (13.0-17.5) gm/dL Sodium (137-145) mmol/L Chloride (98-107) mmol/L BUN (9-20) mg/dL Glucose (74-99) mg/dL POC Glucose (mg/dL) (70-110) mg/dL Calcium (8.4-10.2) mg/dL Magnesium (1.6-2.3) mg/dL Total Bilirubin (0.2-1.3) mg/dL AST (17-59) U/L Total Protein (6.3-8.2) g/dL Albumin (3.5-5.0) g/dL Arterial Blood Potassium 5.0 H 5.1 H (3.4-4.5) mmol/L Crossmatch 10/08/22 10/08/22 10/08/22 Range/Units 13:30 13:30 16:23 WBC 14.1 H 15.3 H (3.8-10.6) k/uL Neutrophils # 11.8 H 13.1 H (1.3-7.7) k/uL Lymphocytes # (1.0-4.8) k/uL PT (9.0-12.0) sec INR (<1.2) APTT (22.0-30.0) sec ABG pCO2 (35-45) mmHg ABG pO2 (83-108) mmHg ABG HCO3 (21-25) mmol/L ABG Total CO2 (19-24) mmol/L ABG O2 Saturation (94-97) % ABG Hematocrit (34.0-46.0) % ABG Potassium (3.4-4.5) mmol/L ABG Ionized Calcium (4.5-5.3) mg/dL Hemoglobin (13.0-17.5) gm/dL Sodium (137-145) mmol/L Chloride 110 H (98-107) mmol/L BUN 21 H (9-20) mg/dL Glucose (74-99) mg/dL POC Glucose (mg/dL) (70-110) mg/dL Calcium 8.3 L (8.4-10.2) mg/dL Magnesium 2.6 H (1.6-2.3) mg/dL Total Bilirubin (0.2-1.3) mg/dL AST 82 H (17-59) U/L Total Protein 5.6 L (6.3-8.2) g/dL Albumin 3.2 L (3.5-5.0) g/dL Arterial Blood Potassium (3.4-4.5) mmol/L Crossmatch 10/08/22 10/09/22 10/09/22 Range/Units 19:40 00:07 05:03 WBC 14.4 H (3.8-10.6) k/uL Neutrophils # 12.9 H (1.3-7.7) k/uL Lymphocytes # 0.7 L (1.0-4.8) k/uL PT (9.0-12.0) sec INR (<1.2) APTT (22.0-30.0) sec ABG pCO2 (35-45) mmHg ABG pO2 (83-108) mmHg ABG HCO3 (21-25) mmol/L ABG Total CO2 (19-24) mmol/L ABG O2 Saturation (94-97) % ABG Hematocrit (34.0-46.0) % ABG Potassium (3.4-4.5) mmol/L ABG Ionized Calcium (4.5-5.3) mg/dL Hemoglobin (13.0-17.5) gm/dL Sodium (137-145) mmol/L Chloride (98-107) mmol/L BUN (9-20) mg/dL Glucose (74-99) mg/dL POC Glucose (mg/dL) 111 H 114 H (70-110) mg/dL Calcium (8.4-10.2) mg/dL Magnesium (1.6-2.3) mg/dL Total Bilirubin (0.2-1.3) mg/dL AST (17-59) U/L Total Protein (6.3-8.2) g/dL Albumin (3.5-5.0) g/dL Arterial Blood Potassium (3.4-4.5) mmol/L Crossmatch 10/09/22 10/09/22 10/09/22 Range/Units 05:04 05:04 06:55 WBC 14.3 H (3.8-10.6) k/uL Neutrophils # 12.3 H (1.3-7.7) k/uL Lymphocytes # (1.0-4.8) k/uL PT (9.0-12.0) sec INR (<1.2) APTT (22.0-30.0) sec ABG pCO2 (35-45) mmHg ABG pO2 (83-108) mmHg ABG HCO3 (21-25) mmol/L ABG Total CO2 (19-24) mmol/L ABG O2 Saturation (94-97) % ABG Hematocrit (34.0-46.0) % ABG Potassium (3.4-4.5) mmol/L ABG Ionized Calcium (4.5-5.3) mg/dL Hemoglobin (13.0-17.5) gm/dL Sodium 136 L (137-145) mmol/L Chloride (98-107) mmol/L BUN (9-20) mg/dL Glucose 120 H (74-99) mg/dL POC Glucose (mg/dL) 118 H (70-110) mg/dL Calcium (8.4-10.2) mg/dL Magnesium (1.6-2.3) mg/dL Total Bilirubin 2.0 H (0.2-1.3) mg/dL AST 120 H (17-59) U/L Total Protein (6.3-8.2) g/dL Albumin (3.5-5.0) g/dL Arterial Blood Potassium (3.4-4.5) mmol/L Crossmatch 10/09/22 Range/Units 08:11 WBC (3.8-10.6) k/uL Neutrophils # (1.3-7.7) k/uL Lymphocytes # (1.0-4.8) k/uL PT (9.0-12.0) sec INR (<1.2) APTT (22.0-30.0) sec ABG pCO2 (35-45) mmHg ABG pO2 (83-108) mmHg ABG HCO3 (21-25) mmol/L ABG Total CO2 (19-24) mmol/L ABG O2 Saturation (94-97) % ABG Hematocrit (34.0-46.0) % ABG Potassium (3.4-4.5) mmol/L ABG Ionized Calcium (4.5-5.3) mg/dL Hemoglobin (13.0-17.5) gm/dL Sodium (137-145) mmol/L Chloride (98-107) mmol/L BUN (9-20) mg/dL Glucose (74-99) mg/dL POC Glucose (mg/dL) 119 H (70-110) mg/dL Calcium (8.4-10.2) mg/dL Magnesium (1.6-2.3) mg/dL Total Bilirubin (0.2-1.3) mg/dL AST (17-59) U/L Total Protein (6.3-8.2) g/dL Albumin (3.5-5.0) g/dL Arterial Blood Potassium (3.4-4.5) mmol/L Crossmatch
[2022-10-09 09:10] LABS: Glucose,Whole Blood 130 mg/dL (70-110)
[2022-10-09 10:07] VITALS: BMI 31.9
[2022-10-09 10:07] LABS: Glucose,Whole Blood 128 mg/dL (70-110)
[2022-10-09 11:19] LABS: Glucose,Whole Blood 134 mg/dL (70-110)
[2022-10-09] MEDS: NOREPINEPHRINE 4 MG in SODIUM CHLORIDE 0.9% 250 ML IV SCH (14:02)
[2022-10-09] MEDS: INSULIN ASPART (NovoLOG) 100 UNIT/ML VIAL SQ SCH ×3 (14:03→20:00)
[2022-10-09] MEDS: MILRINONE-D5W PMX 20 MG in DEXTROSE/WATER 1 100ML.BAG IV SCH (14:03)
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
[2022-10-09 16:53] LABS: Glucose,Whole Blood 124 mg/dL (70-110)
[2022-10-09 19:56] LABS: Glucose,Whole Blood 137 mg/dL (70-110)
[2022-10-09] MEDS: SENNOSIDES-DOCUSATE SODIUM 1 EACH TAB PO SCH (19:59)
--- NOTE | 2022-10-09 22:16 | CONS ---
CONSULTATION REASON FOR CONSULTATION: Advice regarding diabetes mellitus and other medical issues, requested by surgery. HISTORY OF PRESENT ILLNESS: This is a 52-year-old gentleman with past medical history of diabetes mellitus, hypertension, history of CHF, nonischemic cardiomyopathy, underwent aortic valve replacement and mitral valve repair. The patient was closely monitored, patient extubated. Chest tubes in place including [place]-Juan. The blood sugar is only mildly elevated at 130. Patient apparently had prediabetes. There is no history of any fever, rigors, or chills at this time. PAST MEDICAL HISTORY: History of CHF, GERD, diabetes mellitus. The rest of the history and rest of the chart is reviewed. HOME MEDICATIONS: Reviewed include multivitamins, doses and rest of medication reviewed. The patient is on Entresto. ALLERGIES: Ibuprofen. FAMILY HISTORY: History of CVA, TIA. SOCIAL HISTORY: No history of smoking. History of THC. REVIEW OF SYSTEMS: A 14-point review is negative except as mentioned earlier. PHYSICAL EXAMINATION: VITAL SIGNS: Pulse is 77, blood pressure 130/94, respirations 13. HEENT: Conjunctivae normal. NECK: No jugular venous distention. CARDIOVASCULAR: S1, S2. RESPIRATIONS: Breath sounds diminished at the bases. Diffuse scattered rhonchi. ABDOMEN: Soft, nontender. LEGS: No edema. NERVOUS SYSTEM: No focal deficits. LABS: Accu-Cheks 134, 128, rest of the labs noted. ASSESSMENT: 1. Status post aortic valve replacement and mitral valve repair. 2. Diabetes mellitus, type 2. 3. History of nonischemic cardiomyopathy and congestive heart failure. 4. History of seizure disorder. 5. History of sleep apnea. 6. History of ventricular tachycardia. RECOMMENDATIONS: This 52-year-old gentleman presented with multiple complex medical issues, we will monitor the patient closely. Will recommend to resume the home medications and institute Accu-Cheks a.c. and h.s. and insulin scale. Diabetic, consistent carb diet and appropriate, otherwise symptomatic treatment, DVT prophylaxis. We will follow the patient closely. The patient may be asked to follow with primary physician closely after discharge. Thank you Dr. Mcdowell. JERRY / CONSUELON: [id number] /
[2022-10-10] MEDS: HEPARIN SODIUM,PORCINE/PF 5,000 UNIT/0.5 ML SYRINGE SQ SCH ×3 (01:19→16:55)
[2022-10-10] MEDS: HYDROcodone/APAP 5-325MG 1 EACH TAB PO PRN ×3 (01:41→10:47)
[2022-10-10] MEDS: carvediloL 3.125 MG TAB PO SCH ×3 (05:41→16:55)
[2022-10-10 05:44] LABS: Basophils % (A) 0 %; Eosinophils # (A) 0.1 k/uL (0-0.7); Eosinophils % (A) 0 %; HCT 42.1 % (39.0-53.0); HGB 14.1 gm/dL (13.0-17.5); Lymphocytes # (A) 1.5 k/uL (1.0-4.8); Lymphocytes % (A) 9 %; MCH 30.8 pg (25.0-35.0); MCHC 33.4 g/dL (31.0-37.0); Mean Platelet Volume 8.6; Monocytes # (A) 0.9 k/uL (0-1.0); Monocytes % (A) 5 %; Neutrophils # (A) 13.6 k/uL (1.3-7.7); Neutrophils % (A) 83 %; Platelet Count 110 k/uL (150-450); RBC 4.58 m/uL (4.30-5.90); RDW 14.2 % (11.5-15.5); WBC 16.4 k/uL (3.8-10.6)
[2022-10-10 05:49] LABS: Ionized Calcium 5.1 mg/dL (4.5-5.3)
[2022-10-10 05:57] LABS: Albumin 3.4 g/dL (3.5-5.0); Calcium 8.3 mg/dL (8.4-10.2); Total Bilirubin 2.3 mg/dL (0.2-1.3); Total Protein 6.2 g/dL (6.3-8.2)
[2022-10-10 07:06] LABS: Glucose,Whole Blood 110 mg/dL (70-110)
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
[2022-10-10] MEDS: INSULIN ASPART (NovoLOG) 100 UNIT/ML VIAL SQ SCH ×4 (07:48→20:20)
[2022-10-10 07:57] LABS: Glucose,Whole Blood 120 mg/dL (70-110)
--- NOTE | 2022-10-10 08:18 | XR ---
EXAMINATION TYPE: XR chest 1V portable DATE OF EXAM: 10/10/2022 6:44 AM COMPARISON: Chest radiographs from 10/09/2022 TECHNIQUE: XR chest 1V portable Portable AP radiograph of the chest. CLINICAL INDICATION:Male, 52 years old with history of Post Operative Cardiac Surgery; FINDINGS: Lungs/Pleura: Bibasilar atelectasis with low lung volumes. No evidence for pneumothorax, pleural effu corinne or focal consolidation. Pulmonary vascularity: Unremarkable. Heart/mediastinum: Cardiomediastinal silhouette is enlarged and stable. Left atrial appendage occlusi on device is present. Musculoskeletal: No acute osseous pathology. Midline sternotomy wires are noted. Other findings: None IMPRESSION: Mild bibasilar atelectasis.
[2022-10-10] MEDS: DAPAGLIFLOZIN PROPANEDIOL 5 MG TABLET PO SCH (08:29)
[2022-10-10] MEDS: AMIODARONE 200 MG TAB PO SCH ×2 (08:29→20:19)
[2022-10-10] MEDS: CLOPIDOGREL 75 MG TAB PO SCH (08:30)
[2022-10-10] MEDS: MULTIVITAMINS, THERA 1 EACH TAB PO SCH (08:30)
[2022-10-10] MEDS: ASPIRIN 325 MG TAB PO SCH (08:30)
[2022-10-10] MEDS: ATORVASTATIN 20 MG TAB PO SCH (08:30)
[2022-10-10] MEDS: LACTATED RINGERS 1,000 ML IV SCH (08:35)
--- NOTE | 2022-10-10 08:35 | P.PN ---
Subjective Progress Note Date: 10/10/22 PROGRESS NOTE The patient is a 52-year-old male, followed by Dr. Johnson underwent aortic valve replacement and mitral valve repair was closure of the left atrial appendage. He has been having progressive aortic regurgitation with evidence of cardiomyopathy. He underwent cardiac catheterization in July and showed normal coronary arteries, his DAQUAN showed an ejection fraction of 35-40% with global hypokinesis severe aortic was moderate mitral regurgitation and mild tricuspid regurgitation. The patient is intubated and sedated. He is in sinus mechanism but apparently had arrhythmia in the operating room. He has been complaining according to the records of progressive dyspnea and fatigue. He has a prior history of sustained on a more frequent ventricle tachycardia. He has a history of diabetes, hypertension and hyperlipidemia. October 09: The patient is extubated, sitting up in the chair. He he has incisional chest pain. His presenting stable. He continues to be in sinus mechanism. His urinary output is good. He has no ventricular ectopic activity. He is using incentive spirometry October 10: He's feeling well this morning, sitting up in the chair, continues to be in junctional rhythm with no evidence of bradycardia arrhythmia. He denies any chest discomfort. He has no dizziness or palpitation, no nausea or vomiting. Medications: Amiodarone 400 mg twice a day, Coreg 3.125 mg twice a day, aspirin once a day, Lipitor 20 mg daily, Plavix 75 mg daily, Farxiga 5 mg qd PHYSICAL EXAMINATION: Blood pressure 111/80 heart rate 70 LUNGS: Mild decrease in the breath sounds at the bases HEART: Regular rate and rhythm, S1, S2. No S3. systolic ejection murmur ABDOMEN: Soft, nontender, no organomegaly EXTREMETIES: No edema LAB: Hemoglobin 14.1, BUN 20, creatinine 1.2, potassium 5.0 IMPRESSION: 1. Status post aortic valve replacement and mitral valve repair 2. History of nonischemic cardiomyopathy 3. Prior history of nonsustained VT 4. Hyperlipidemia 5. Junctional rhythm PLAN: 1. Continue present therapy 2. Follow blood pressure and if stable reinitiate Entresto and adjust the dose of his beta olga. 3. Follow renal functions 4. Increase physical activity 5. Follow rhythm and if he continues to be in junctional rhythm after increasing the physical activity he may require pacemaker Objective - Vital Signs Vital signs: Vital Signs Temp 99 F 10/10/22 04:00 Pulse 77 10/10/22 07:00 Resp 14 10/10/22 07:00 BP 135/99 10/10/22 07:00 Pulse Ox 94 L 10/10/22 07:00 FiO2 50 10/08/22 15:20 Intake & Output 10/09/22 10/10/22 10/10/22 18:59 06:59 18:59 Intake Total 570.069 555 26 Output Total 800 690 45 Balance -229.931 -135 -19 Weight 102.5 kg 103.9 kg Intake: IV 548 315 26 .9NS Cardiac Output 20 .9NS Pressure Bags 108 75 6 Lactated Ringers 1,000 ml 420 240 20 @ 20 mls/hr IV .Q24H [facility] Rx#:[id number] Intake, IV Titration 22.069 Amount Insulin Regular 100 unit 1.869 In Sodium Chloride 0.9% 100 ml @ Per Protocol IV .Q0M [facility] Rx#:[id number] Milrinone-D5w Pmx 20 mg 20.2 In Dextrose/Water 1 100ml .bag @ 0.3 MCG/KG/MIN 9. 09 mls/hr IV .Q11H1M [facility] Rx#:[id number] Oral 240 Output: Chest Tube Drainage 190 110 10 Mediastinal X @ 190 110 10 Urine 610 580 35 Other: Voiding Method Indwelling Catheter Indwelling Catheter ABP, PAP, CO, CI - Last Documented Arterial Blood Pressure 111/83 Pulmonary Artery Pressure 44/19 Cardiac Output 4.9 Cardiac Index 2.2 - Labs CBC & Chem 7: 10/10/22 05:00 10/10/22 05:00 Labs: Abnormal Lab Results - Last 24 Hours (Table) 10/09/22 10/09/22 10/09/22 Range/Units 09:08 10:05 11:17 WBC (3.8-10.6) k/uL Plt Count (150-450) k/uL Neutrophils # (1.3-7.7) k/uL Sodium (137-145) mmol/L BUN (9-20) mg/dL Glucose (74-99) mg/dL POC Glucose (mg/dL) 130 H 128 H 134 H (70-110) mg/dL Calcium (8.4-10.2) mg/dL Total Bilirubin (0.2-1.3) mg/dL AST (17-59) U/L Total Protein (6.3-8.2) g/dL Albumin (3.5-5.0) g/dL 10/09/22 10/09/22 10/10/22 Range/Units 16:52 19:55 05:00 WBC 16.4 H (3.8-10.6) k/uL Plt Count 110 L (150-450) k/uL Neutrophils # 13.6 H (1.3-7.7) k/uL Sodium (137-145) mmol/L BUN (9-20) mg/dL Glucose (74-99) mg/dL POC Glucose (mg/dL) 124 H 137 H (70-110) mg/dL Calcium (8.4-10.2) mg/dL Total Bilirubin (0.2-1.3) mg/dL AST (17-59) U/L Total Protein (6.3-8.2) g/dL Albumin (3.5-5.0) g/dL 10/10/22 10/10/22 Range/Units 05:00 07:56 WBC (3.8-10.6) k/uL Plt Count (150-450) k/uL Neutrophils # (1.3-7.7) k/uL Sodium 130 L (137-145) mmol/L BUN 21 H (9-20) mg/dL Glucose 113 H (74-99) mg/dL POC Glucose (mg/dL) 120 H (70-110) mg/dL Calcium 8.3 L (8.4-10.2) mg/dL Total Bilirubin 2.3 H (0.2-1.3) mg/dL AST 80 H (17-59) U/L Total Protein 6.2 L (6.3-8.2) g/dL Albumin 3.4 L (3.5-5.0) g/dL
[2022-10-10 09:05] LABS: Glucose,Whole Blood 127 mg/dL (70-110)
[2022-10-10] MEDS: IPRATROPIUM-ALBUTEROL 3 ML NEB INHALATION SCH ×4 (09:16→21:34)
[2022-10-10] MEDS ORDERED: FUROSEMIDE 10 MG/ML 4 ML VIAL IV STA (10:19)
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
[2022-10-10 12:35] LABS: Glucose,Whole Blood 143 mg/dL (70-110)
[2022-10-10 13:12] LABS: Glucose,Whole Blood 122 mg/dL (70-110)
[2022-10-10 16:53] LABS: Glucose,Whole Blood 106 mg/dL (70-110)
[2022-10-10 20:14] LABS: Glucose,Whole Blood 116 mg/dL (70-110)
[2022-10-10] MEDS: SENNOSIDES-DOCUSATE SODIUM 1 EACH TAB PO SCH (20:20)
[2022-10-10 21:01] LABS: Glucose,Whole Blood 110 mg/dL (70-110)
[2022-10-10] MEDS: ACETAMINOPHEN TAB 500 MG TAB PO PRN (21:29)
[2022-10-11] MEDS: HEPARIN SODIUM,PORCINE/PF 5,000 UNIT/0.5 ML SYRINGE SQ SCH ×3 (00:53→15:27)
[2022-10-11] MEDS: ACETAMINOPHEN TAB 500 MG TAB PO PRN ×3 (04:41→21:38)
[2022-10-11] MEDS: carvediloL 3.125 MG TAB PO SCH ×2 (06:33→17:34)
[2022-10-11 06:35] LABS: Glucose,Whole Blood 104 mg/dL (70-110)
[2022-10-11] MEDS: INSULIN ASPART (NovoLOG) 100 UNIT/ML VIAL SQ SCH ×4 (06:35→21:32)
--- NOTE | 2022-10-11 06:47 | PN ---
PROGRESS NOTE DATE OF SERVICE: 10/10/2022 SUBJECTIVE: This is a 52-year-old gentleman who was admitted after aortic valve replacement, the mitral repair is being closely monitored. The patient also has history of diabetes mellitus type 2 as well. The blood sugars have been fairly well controlled at this time. The bilirubin is elevated to 0.3. PAST MEDICAL HISTORY: Reviewed. REVIEW OF SYSTEM: A 14-point review of systems is negative except as mentioned earlier. CURRENT MEDICATIONS: Reviewed, which include amiodarone, dose and rest of medication noted. PHYSICAL EXAM: VITAL SIGNS: Pulse is 72, blood pressure 127/83, respirations 11. HEENT: Conjunctivae normal. NECK: No jugular venous distention. No neck pain. CARDIOVASCULAR: S1, S2. RESPIRATIONS: Breath sounds diminished at the bases. Diffuse scattered rhonchi. ABDOMEN: Soft. LEGS: No edema. NERVOUS SYSTEM: No focal deficits. LABORATORY DATA: Reviewed. ASSESSMENT: 1. Status post aortic valve replacement and mitral repair. 2. Diabetes mellitus type 2. 3. History of nonischemic cardiomyopathy and CHF prior to admission. 4. History of seizure disorder. 5. History of sleep apnea. 6. History of ventricular tachycardia. RECOMMENDATIONS: Continue current management and symptomatic treatment. Continue incentive spirometry, bronchodilators. Continue rest of medications, amiodarone. I would also recommend to monitor the liver functions serially to ensure stability. Otherwise, continue to monitor. Further recommendations to follow. [id number] / BENNY: [id number] /
[2022-10-11 07:26] LABS: Calcium 8.4 mg/dL (8.4-10.2); Magnesium 2.1 mg/dL (1.6-2.3); Potassium 4.4 mmol/L (3.5-5.1)
[2022-10-11 07:29] LABS: Basophils % (A) 0 %; Eosinophils # (A) 0.2 k/uL (0-0.7); Eosinophils % (A) 2 %; HCT 35.4 % (39.0-53.0); HGB 11.9 gm/dL (13.0-17.5); Lymphocytes # (A) 1.4 k/uL (1.0-4.8); Lymphocytes % (A) 11 %; MCH 31.6 pg (25.0-35.0); MCHC 33.7 g/dL (31.0-37.0); MCV 93.7 fL (80.0-100.0); Monocytes # (A) 0.8 k/uL (0-1.0); Monocytes % (A) 7 %; Neutrophils # (A) 9.9 k/uL (1.3-7.7); Neutrophils % (A) 78 %; Platelet Count 109 k/uL (150-450); RBC 3.78 m/uL (4.30-5.90); RDW 13.9 % (11.5-15.5); WBC 12.7 k/uL (3.8-10.6)
--- NOTE | 2022-10-11 07:34 | XR ---
EXAMINATION TYPE: XR chest 2V DATE OF EXAM: 10/11/2022 COMPARISON: 10/10/2022 INDICATION: Postop cardiac surgery TECHNIQUE: Frontal and lateral views of the chest are obtained. FINDINGS: The heart size is mildly prominent. The pulmonary vasculature is normal. Bibasilar platelike atelectasis is developing. Minimal pleural effusion should be considered. Sterno jose miguel wires are present from surgery. IMPRESSION: 1. Bibasilar platelike atelectasis. Minimal pleural effusions being considered. 2. Cardiomegaly
[2022-10-11] MEDS: IPRATROPIUM-ALBUTEROL 3 ML NEB INHALATION SCH ×4 (08:32→21:30)
--- NOTE | 2022-10-11 08:55 | P.PN ---
Subjective Progress Note Date: 10/11/22 PROGRESS NOTE The patient is a 52-year-old male, followed by Dr. Johnson underwent aortic valve replacement and mitral valve repair was closure of the left atrial appendage. He has been having progressive aortic regurgitation with evidence of cardiomyopathy. He underwent cardiac catheterization in July and showed normal coronary arteries, his DAQUAN showed an ejection fraction of 35-40% with global hypokinesis severe aortic was moderate mitral regurgitation and mild tricuspid regurgitation. The patient is intubated and sedated. He is in sinus mechanism but apparently had arrhythmia in the operating room. He has been complaining according to the records of progressive dyspnea and fatigue. He has a prior history of sustained on a more frequent ventricle tachycardia. He has a history of diabetes, hypertension and hyperlipidemia. October 09: The patient is extubated, sitting up in the chair. He he has incisional chest pain. His presenting stable. He continues to be in sinus mechanism. His urinary output is good. He has no ventricular ectopic activity. He is using incentive spirometry October 10: He's feeling well this morning, sitting up in the chair, continues to be in junctional rhythm with no evidence of bradycardia arrhythmia. He denies any chest discomfort. He has no dizziness or palpitation, no nausea or vomiting. October 11: He's feeling better today, back in sinus mechanism. He has no pauses or ventricular ectopic activity. He has been ambulating without difficulty. He denies any dizziness or palpitations. He denies any nausea. Hemodynamically stable. Medications: Amiodarone 400 mg twice a day, Coreg 3.125 mg twice a day, aspirin once a day, Lipitor 20 mg daily, Plavix 75 mg daily, Farxiga 5 mg qd PHYSICAL EXAMINATION: Blood pressure 118/80 heart rate 67 LUNGS: Mild decrease in the breath sounds at the bases HEART: Regular rate and rhythm, S1, S2. No S3. systolic ejection murmur, no rub ABDOMEN: Soft, nontender, no organomegaly EXTREMETIES: No edema LAB: Hemoglobin 11.9, BUN 30, creatinine 1.33, potassium 4.4 IMPRESSION: 1. Status post aortic valve replacement and mitral valve repair 2. History of nonischemic cardiomyopathy 3. Prior history of nonsustained VT 4. Hyperlipidemia 5. Junctional rhythm, resolved PLAN: 1. Continue present therapy 2. Follow renal function and if stable start Entresto tomorrow 3. Decrease amiodarone in the morning 4. Increase physical activity 5. Probable discharge in 24-48 hours Objective - Vital Signs Vital signs: Vital Signs Temp 98.7 F 10/11/22 04:00 Pulse 67 10/11/22 04:00 Resp 19 10/11/22 04:00 BP 118/89 10/11/22 04:00 Pulse Ox 95 10/11/22 04:00 FiO2 50 10/08/22 15:20 Intake & Output 10/10/22 10/11/22 10/11/22 18:59 06:59 18:59 Intake Total 252 0 Output Total 1205 Balance -953 0 Weight 101.9 kg Intake: IV 252 0 .9NS Pressure Bags 12 Lactated Ringers 1,000 ml 240 0 @ 20 mls/hr IV .Q24H [facility] Rx#:[id number] Output: Chest Tube Drainage 20 Mediastinal X @ 20 Urine 1185 Other: Voiding Method Indwelling Catheter Urinal # Voids 1 1 ABP, PAP, CO, CI - Last Documented Arterial Blood Pressure 126/88 Pulmonary Artery Pressure 44/19 Cardiac Output 4.9 Cardiac Index 2.2 - Labs CBC & Chem 7: 10/11/22 05:47 10/11/22 05:47 Labs: Abnormal Lab Results - Last 24 Hours (Table) 10/10/22 10/10/22 10/10/22 Range/Units 09:04 12:33 13:11 WBC (3.8-10.6) k/uL RBC (4.30-5.90) m/uL Hgb (13.0-17.5) gm/dL Hct (39.0-53.0) % Plt Count (150-450) k/uL Neutrophils # (1.3-7.7) k/uL Sodium (137-145) mmol/L BUN (9-20) mg/dL Creatinine (0.66-1.25) mg/dL POC Glucose (mg/dL) 127 H 143 H 122 H (70-110) mg/dL 10/10/22 10/11/22 10/11/22 Range/Units 20:12 05:47 05:47 WBC 12.7 H (3.8-10.6) k/uL RBC 3.78 L (4.30-5.90) m/uL Hgb 11.9 L (13.0-17.5) gm/dL Hct 35.4 L (39.0-53.0) % Plt Count 109 L (150-450) k/uL Neutrophils # 9.9 H (1.3-7.7) k/uL Sodium 130 L (137-145) mmol/L BUN 30 H (9-20) mg/dL Creatinine 1.33 H (0.66-1.25) mg/dL POC Glucose (mg/dL) 116 H (70-110) mg/dL
[2022-10-11] MEDS: DAPAGLIFLOZIN PROPANEDIOL 5 MG TABLET PO SCH (09:01)
[2022-10-11] MEDS: ATORVASTATIN 20 MG TAB PO SCH (09:01)
[2022-10-11] MEDS: CLOPIDOGREL 75 MG TAB PO SCH (09:02)
[2022-10-11] MEDS: ASPIRIN 325 MG TAB PO SCH (09:02)
[2022-10-11] MEDS: AMIODARONE 200 MG TAB PO SCH ×2 (09:03→21:35)
[2022-10-11] MEDS: MULTIVITAMINS, THERA 1 EACH TAB PO SCH (09:03)
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
[2022-10-11 12:55] LABS: Glucose,Whole Blood 118 mg/dL (70-110)
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
[2022-10-11 16:47] LABS: Glucose,Whole Blood 107 mg/dL (70-110)
[2022-10-11 21:29] LABS: Glucose,Whole Blood 108 mg/dL (70-110)
[2022-10-11] MEDS: SENNOSIDES-DOCUSATE SODIUM 1 EACH TAB PO SCH (21:35)
[2022-10-12] MEDS: HEPARIN SODIUM,PORCINE/PF 5,000 UNIT/0.5 ML SYRINGE SQ SCH ×2 (01:37→08:37)
--- NOTE | 2022-10-12 03:40 | PN ---
PROGRESS NOTE DATE OF SERVICE: 10/11/2022 SUBJECTIVE: This 52-year-old gentleman, who was admitted after aortic valve replacement and mitral valve repair, is improving significantly. No chest pain. No palpitations. No fever. OBJECTIVE: VITAL SIGNS: Pulse is 68, blood pressure 120/84, respirations 20. CHEST: Clear to auscultation. CARDIOVASCULAR: S1, S2. ABDOMEN: Soft. NERVOUS SYSTEM: Nonfocal. LABORATORY DATA: Reviewed. ASSESSMENT: 1. Status post aortic valve replacement and mitral valve repair. 2. Diabetes mellitus, type 2. 3. History of nonischemic cardiomyopathy with congestive heart failure prior to admission. 4. History of seizure disorder. 5. History of sleep apnea. 6. History of ventricular tachycardia. RECOMMENDATIONS: I recommend to continue current management and symptomatic treatment. Otherwise, at this time, incentive spirometry. Closely follow with Cardiothoracic Surgery. Further recommendations to follow. MMODL / IJN: [id number] /
[2022-10-12 06:39] LABS: HCT 33.3 % (39.0-53.0); HGB 11.1 gm/dL (13.0-17.5); MCH 30.9 pg (25.0-35.0); MCHC 33.2 g/dL (31.0-37.0); MCV 92.8 fL (80.0-100.0); Mean Platelet Volume 8.8; Platelet Count 154 k/uL (150-450); RBC 3.59 m/uL (4.30-5.90); RDW 14.2 % (11.5-15.5); WBC 12.1 k/uL (3.8-10.6)
[2022-10-12 06:53] LABS: Calcium 8.4 mg/dL (8.4-10.2); Potassium 3.9 mmol/L (3.5-5.1)
[2022-10-12] MEDS ORDERED: MAGNESIUM HYDROXIDE 2,400 MG/10 ML CUP PO PRN (06:54)
[2022-10-12 06:59] LABS: Glucose,Whole Blood 86 mg/dL (70-110)
[2022-10-12] MEDS: INSULIN ASPART (NovoLOG) 100 UNIT/ML VIAL SQ SCH (07:04)
[2022-10-12] MEDS: carvediloL 3.125 MG TAB PO SCH (07:04)
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
--- NOTE | 2022-10-12 07:59 | XR ---
EXAMINATION TYPE: XR chest 2V DATE OF EXAM: 10/12/2022 6:14 AM COMPARISON: Chest radiograph from one day prior. TECHNIQUE: XR chest 2V Frontal and lateral views of the chest. CLINICAL INDICATION:Male, 52 years old with history of post cardiac surgery; FINDINGS: Lungs/Pleura: There is no evidence of pleural effusion, focal consolidation, or pneumothorax. Pulmonary vascularity: Unremarkable. Heart/mediastinum: Cardiomediastinal silhouette is enlarged and stable. Left atrial appendage occlusi on device is present. Musculoskeletal: No acute osseous pathology. Midline sternotomy wires are noted. IMPRESSION: Essentially stable exam.
[2022-10-12] MEDS: CLOPIDOGREL 75 MG TAB PO SCH (08:36)
[2022-10-12] MEDS: ATORVASTATIN 20 MG TAB PO SCH (08:36)
[2022-10-12] MEDS: AMIODARONE 200 MG TAB PO SCH (08:36)
[2022-10-12] MEDS: MULTIVITAMINS, THERA 1 EACH TAB PO SCH (08:37)
[2022-10-12] MEDS: ASPIRIN 325 MG TAB PO SCH (08:37)
[2022-10-12] MEDS: DAPAGLIFLOZIN PROPANEDIOL 5 MG TABLET PO SCH (08:37)
[2022-10-12] MEDS: IPRATROPIUM-ALBUTEROL 3 ML NEB INHALATION SCH (09:00)
--- NOTE | 2022-10-12 09:30 | P.PN ---
Subjective Progress Note Date: 10/12/22 PROGRESS NOTE The patient is a 52-year-old male, followed by Dr. Johnson underwent aortic valve replacement and mitral valve repair was closure of the left atrial appendage. He has been having progressive aortic regurgitation with evidence of cardiomyopathy. He underwent cardiac catheterization in July and showed normal coronary arteries, his DAQUAN showed an ejection fraction of 35-40% with global hypokinesis severe aortic was moderate mitral regurgitation and mild tricuspid regurgitation. The patient is intubated and sedated. He is in sinus mechanism but apparently had arrhythmia in the operating room. He has been complaining according to the records of progressive dyspnea and fatigue. He has a prior history of sustained on a more frequent ventricle tachycardia. He has a history of diabetes, hypertension and hyperlipidemia. October 09: The patient is extubated, sitting up in the chair. He he has incisional chest pain. His presenting stable. He continues to be in sinus mechanism. His urinary output is good. He has no ventricular ectopic activity. He is using incentive spirometry October 10: He's feeling well this morning, sitting up in the chair, continues to be in junctional rhythm with no evidence of bradycardia arrhythmia. He denies any chest discomfort. He has no dizziness or palpitation, no nausea or vomiting. October 11: He's feeling better today, back in sinus mechanism. He has no pauses or ventricular ectopic activity. He has been ambulating without difficulty. He denies any dizziness or palpitations. He denies any nausea. Hemodynamically stable. October 12: The patient is feeling better today, ambulating without difficulty, denies any chest pain, dizziness or palpitations. He continues to be in sinus mechanism. Hemodynamically stable. He denies any nausea or vomiting. His energy is better. Medications: Amiodarone 400 mg twice a day, Coreg 3.125 mg twice a day, aspirin once a day, Lipitor 20 mg daily, Plavix 75 mg daily, Farxiga 5 mg qd PHYSICAL EXAMINATION: Blood pressure 129/80 heart rate 70 LUNGS: Mild decrease in the breath sounds at the bases HEART: Regular rate and rhythm, S1, S2. No S3. systolic ejection murmur, no rub ABDOMEN: Soft, nontender, no organomegaly EXTREMETIES: No edema LAB: Hemoglobin 11.1, BUN 33, creatinine 1.33, potassium 3.9 IMPRESSION: 1. Status post aortic valve replacement and mitral valve repair 2. History of nonischemic cardiomyopathy 3. Prior history of nonsustained VT 4. Hyperlipidemia 5. Junctional rhythm, resolved PLAN: 1. Continue present therapy 2. Restart Entresto and Aldactone 3. Decrease amiodarone 4. Increase physical activity 5. Probable DC home today and follow-up as an outpatient Objective - Vital Signs Vital signs: Vital Signs Temp 98.9 F 10/12/22 08:00 Pulse 67 10/12/22 09:10 Resp 19 10/12/22 08:00 BP 129/84 10/12/22 08:00 Pulse Ox 96 10/12/22 08:00 FiO2 50 10/08/22 15:20 Intake & Output 10/11/22 10/12/22 10/12/22 18:59 06:59 18:59 Intake Total 570 400 Output Total 650 725 Balance -80 -325 Weight 101.7 kg Intake: IV 0 Lactated Ringers 1,000 ml 0 @ 20 mls/hr IV .Q24H LOVELY Rx#:[id number] Oral 570 400 Output: Urine 650 725 Other: Voiding Method Urinal Urinal Urinal # Voids 1 1 # Bowel Movements 1 ABP, PAP, CO, CI - Last Documented Arterial Blood Pressure 126/88 Pulmonary Artery Pressure 44/19 Cardiac Output 4.9 Cardiac Index 2.2 - Labs CBC & Chem 7: 10/12/22 05:36 10/12/22 05:36 Labs: Abnormal Lab Results - Last 24 Hours (Table) 10/11/22 10/12/22 10/12/22 Range/Units 12:53 05:36 05:36 WBC 12.1 H (3.8-10.6) k/uL RBC 3.59 L (4.30-5.90) m/uL Hgb 11.1 L (13.0-17.5) gm/dL Hct 33.3 L (39.0-53.0) % Sodium 133 L (137-145) mmol/L BUN 33 H (9-20) mg/dL Creatinine 1.33 H (0.66-1.25) mg/dL POC Glucose (mg/dL) 118 H (70-110) mg/dL
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
[2022-10-12 11:56] VITALS: BP 135/92; PULSE 69; RESP 21; TEMP 98.6
--- NOTE | 2022-10-12 20:05 | P.PN ---
Subjective This is a pleasant 52 years old -Luxembourger male with past medical history of aortic stenosis and [id number] mitral valve disease status post aortic valve replacement and mitral valve repair on today's postop day #4. Patient was sitting in chair, comfortable, fully awake and oriented, denies any new symptoms. He denies chest pain or dyspnea, no abdominal pain or vomiting or diarrhea, no urinary complaints. Patient also with some evidence of cardiomyopathy with ejection fraction of 35- 40% however he is asymptomatic. He is followed closely by several consultants including cardiothoracic surgery team as well as team He has some mild leukocytosis of 12,000, creatinine is slightly trending up 1.1, 1.2 and 1.32. Patient is currently kept on aspirin and Plavix Objective - Vital Signs Vital signs: Vital Signs Temp 98.9 F 10/12/22 08:00 Pulse 67 10/12/22 09:10 Resp 19 10/12/22 08:00 BP 129/84 10/12/22 08:00 Pulse Ox 96 10/12/22 08:00 FiO2 50 10/08/22 15:20 Intake & Output 10/11/22 10/12/22 10/12/22 18:59 06:59 18:59 Intake Total 570 400 Output Total 650 725 Balance -80 -325 Weight 101.7 kg Intake: IV 0 Lactated Ringers 1,000 ml 0 @ 20 mls/hr IV .Q24H [facility] Rx#:[id number] Oral 570 400 Output: Urine 650 725 Other: Voiding Method Urinal Urinal Urinal # Voids 1 1 # Bowel Movements 1 ABP, PAP, CO, CI - Last Documented Arterial Blood Pressure 126/88 Pulmonary Artery Pressure 44/19 Cardiac Output 4.9 Cardiac Index 2.2 - Exam GENERAL: The patient is alert and oriented x3, not in any acute distress. Well developed, well nourished. HEENT: Pupils are round and equally reacting to light. EOMI. No scleral icterus. No conjunctival pallor. Normocephalic, atraumatic. No pharyngeal erythema. No thyromegaly. -CARDIOVASCULAR: S1 and S2 present. No murmurs, rubs, or gallops. Surgical wound with dressing in a Place, rest of exam is deferred surgery team PULMONARY: Chest is clear to auscultation, no wheezing or crackles. ABDOMEN: Soft, nontender, nondistended, normoactive bowel sounds. No palpable organomegaly. MUSCULOSKELETAL: No joint swelling or deformity. EXTREMITIES: No cyanosis, clubbing, or pedal edema. NEUROLOGICAL: Gross neurological examination did not reveal any focal deficits. SKIN: No rashes. no petechiae. - Labs CBC & Chem 7: 10/12/22 05:36 10/12/22 05:36 Labs: Abnormal Lab Results - Last 24 Hours (Table) 10/11/22 10/12/22 10/12/22 Range/Units 12:53 05:36 05:36 WBC 12.1 H (3.8-10.6) k/uL RBC 3.59 L (4.30-5.90) m/uL Hgb 11.1 L (13.0-17.5) gm/dL Hct 33.3 L (39.0-53.0) % Sodium 133 L (137-145) mmol/L BUN 33 H (9-20) mg/dL Creatinine 1.33 H (0.66-1.25) mg/dL POC Glucose (mg/dL) 118 H (70-110) mg/dL Assessment and Plan Assessment: Aortic valve replacement and mitral valve repair. Postop day #4 Cardiomyopathy with ejection fraction 35-40% Hypertension Plan: Continue with aspirin and Plavix Continue with Coreg and amiodarone Several consultants on the case with cardiology and pulmonary Cardiothoracic surgery team primary team on the case Labs and medication were reviewed.. Continue same treatment. Continue with sy mptomatic treatment. Resume home medication. Monitor lytes and vitals. DVT and GI prophylaxis. Further recommendations as per clinical course of the patient Thank you for consulting us
--- NOTE | 2022-10-13 21:15 | CDI ---
Documentation Clarification Form Date: 10/13/2022 09:04:59 PM From: Yu Saenz Phone: Admit Date: 10/08/2022 05:35:00 AM Patient Name: Tono Oviedo Visit Number: [id number] Discharge Date: 10/12/2022 12:15:00 PM ATTENTION: The Clinical Documentation Specialists (CDI) and [facility] Coding Staff appreciate your assistance in clarifying documentation. Please respond to the clarification below the line at the bottom and electronically sign. The CDI & [facility] Coding staff will review the response and follow-up if needed. Please note: Queries are made part of the Legal Health Record. If you have any questions, please contact the author of this message via ITS. Dr. Shane Griffiths Unspecified CKD is documented per 10/10/22 Progress Note. Additional clarification regarding the stage of CKD is requested. History/Risk Factors: 52yo M, severe , TR, MR, NICM, CHF, HTN, VTach, DMII w CKD, ALISON Clinical Indicators: BUN: 21 Creatinine 1.17 AA GFR 72 Non AA GFR 62 Treatment: Remove Hyde catheter, continue to record strict accurate intake and output. Daily weights. May bladder scan every 6 hours and when necessary post void residual. Please clarify the stage of the CKD, if known: [ ] CKD Stage 2 (GFR 60-89) [ ] Other, please specify [ ] Unable to determine (Template last revised: November 2020) CKD Stage 2 (GFR 60-89) MTDD
== END 2022-10-12 12:15 | disposition home health service (06) | DRG 267 ==
LOC: 2ORMAIN 10-08 05:35 → 2SICU 10-08 13:34
PROVIDERS: ADMIT Thoracic Surgery (Cardiothoracic Vascular Surgery); ATTEND Thoracic Surgery (Cardiothoracic Vascular Surgery)
PROC: 02L73CK Occlusion of Left Atrial Appendage with Extraluminal Device, Percutaneous Approach (ICD-10-PCS; 2022-10-08)
PROC: 3E033XZ Introduction of Vasopressor into Peripheral Vein, Percutaneous Approach (ICD-10-PCS; 2022-10-08)
PROC: B24BZZ4 Ultrasonography of Heart with Aorta, Transesophageal (ICD-10-PCS; 2022-10-08)
PROC: 5A1221Z Performance of Cardiac Output, Continuous (ICD-10-PCS; 2022-10-08)
PROC: 02RF38Z Replacement of Aortic Valve with Zooplastic Tissue, Percutaneous Approach (ICD-10-PCS; principal; 2022-10-08 08:00)
PROC: 02UG3JZ Supplement Mitral Valve with Synthetic Substitute, Percutaneous Approach (ICD-10-PCS; 2022-10-08 08:00)
DX: I08.3 Combined rheumatic disorders of mitral, aortic and tricuspid valves (principal); Z00.6 Encounter for examination for normal comparison and control in clinical research program; I13.0 Hypertensive heart and chronic kidney disease with heart failure and stage 1 through stage 4 chronic kidney disease, or unspecified chronic kidney disease; I47.20 Ventricular tachycardia, unspecified; I42.8 Other cardiomyopathies; I50.22 Chronic systolic (congestive) heart failure; E11.22 Type 2 diabetes mellitus with diabetic chronic kidney disease; E78.5 Hyperlipidemia, unspecified; N18.2 Chronic kidney disease, stage 2 (mild); G47.33 Obstructive sleep apnea (adult) (pediatric); M19.90 Unspecified osteoarthritis, unspecified site; J98.4 Other disorders of lung; Z79.82 Long term (current) use of aspirin; Z79.84 Long term (current) use of oral hypoglycemic drugs; Z79.899 Other long term (current) drug therapy; Z88.6 Allergy status to analgesic agent; Z86.69 Personal history of other diseases of the nervous system and sense organs; Z82.49 Family history of ischemic heart disease and other diseases of the circulatory system; Z28.310 Unvaccinated for COVID-19
CPT/HCPCS: 71045; 71046; 80048; 80053; 82330; 82805; 83735; 85025; 85027; 85520; 85610; 85730; 86850; 86891; 86900; 86901; 86920; 88305; 94640